=== PATIENT | male | born 1980 | race Caucasian/White ===

== ENCOUNTER 2017-02-28 08:02 | Emergency (ER) | payer OTHER ==
[~2017-02-28] VITALS: Ht 165.1 cm; Wt 82.7 kg
[2017-02-28 08:14] VITALS: BP 143/91
[2017-02-28] MEDS ORDERED: AUGM875T28 PO (08:33)
[2017-02-28] MEDS ORDERED: CLAR1TAB2 PO (08:33)
[2017-02-28] MEDS ORDERED: IBUP80TA PO (08:33)
[2017-02-28] MEDS ORDERED: IBUPROFEN 800 MG TAB PO ONE (08:45)
[2017-02-28] MEDS ORDERED: AUGMENTIN 875 MG TAB PO ONE (08:45)
== END 2017-02-28 09:26 | disposition home or self-care (01) ==
LOC: M ED 08:02
DX: H66.93 Otitis media, unspecified, bilateral (principal); R07.0 Pain in throat; F17.200 Nicotine dependence, unspecified, uncomplicated